=== PATIENT | male | born 1995 | race Caucasian/White ===

== ENCOUNTER 2024-08-28 12:21 | Emergency (ER) | payer OTHER ==
[~2024-08-28] VITALS: Ht 162.6 cm; Wt 56.8 kg
[2024-08-28 13:12] LABS: BASO # 0.0 10^3/uL (0.0-0.2); BASO % 0.4 % (0.0-1.0); EOS # 0.1 10^3/uL (0.0-0.5); EOS % 1.5 % (0.0-3.0); LYMPH # 2.1 10^3/uL (1.5-5.0); LYMPH % 25.3 % (24.0-44.0); MONO # 0.5 10^3/uL (0.0-0.8); MONO % 6.3 % (2.0-8.0); NEUTROPHILS # 5.6 10^3/uL (1.5-8.5); NEUTROPHILS % 66.3 % (36.0-66.0); PLATELET COUNT, AUTOMATED 243 10^3/uL (150-450)
[2024-08-28 13:42] LABS: CALCIUM LEVEL 9.7 MG/DL (8.5-10.1); CARBON DIOXIDE LEVEL 31 MMOL/L (20-31); CHLORIDE LEVEL 105 MMOL/L (98-107); CREATININE FOR GFR 0.83 MG/DL (0.70-1.30); GLOMERULAR FILTRATION RATE > 90.0 (>60); POTASSIUM SERUM 4.1 MMOL/L (3.5-5.1); SODIUM LEVEL 144 MMOL/L (136-145)
[2024-08-28 14:15] LABS: HIV 1&2 SCREEN NEGATIVE (NEGATIVE)
[2024-08-28 14:19] LABS: Trichomonas vaginalis (AMP) NOT DETECTED (NEGATIVE)
[2024-08-28 14:43] LABS: GC DNA AMPLIFICATION NEGATIVE (NEGATIVE)
[2024-08-28] MEDS: PENICILLIN G BENZATHINE 2,400,000 UNIT/4 ML SYRINGE IM ONE (16:50)
[2024-08-28] MEDS ORDERED: CEPH500C PO (16:55)
[2024-08-28 17:11] VITALS: BP 125/76; TEMP 97.4; O2SAT 100
[2024-09-02 15:02] LABS: RPR Reactive (Non-Reactive); T PALLIDUM ANTIBODIES Positive (Negative)
== END 2024-08-28 17:16 | disposition home or self-care (01) ==
LOC: M ED 12:21
DX: A53.9 Syphilis, unspecified (principal); L03.031 Cellulitis of right toe; F17.200 Nicotine dependence, unspecified, uncomplicated; Z79.2 Long term (current) use of antibiotics
CPT/HCPCS: 80048; 85025; 86780; 87389; 87661; 87810; 87850; 96372; 99283; J0561